=== PATIENT | male | born 1955 | race Caucasian/White ===

== ENCOUNTER 2016-11-30 23:56 | Emergency (ER) | payer SELFPAY ==
[2016-12-01] MEDS ORDERED: HYDROcodone/ACETAMIN 5-325 MG* 1 TAB PO PRN (02:19)
[2016-12-01 02:41] VITALS: BP 150/70
--- NOTE | 2016-12-01 07:52 | RAD ---
INDICATION: Right knee pain COMPARISON: August 04, 2013 TECHNIQUE: AP, lateral, and oblique views were obtained. FINDINGS: The bony structures, joint spaces, and soft tissues are normal for age. IMPRESSION: NEGATIVE EXAMINATION
--- NOTE | 2016-12-01 14:33 | ED ---
Lenny Aquino Rebecca, scribed for Savana Cline MD on 12/01/16 at 0050 . Lower Extremity - HPI Summary HPI Summary: Pt is a 61 y/o M who presents to ED c/o R knee pain s/p injury. 10 days ago () the pt twisted his right knee and he began experiencing pain after incident , but was hoping that sx would resolve themselves. Pain is still present and is currently mild, ranked 6/10. Treating with Ibuprofen, last took 400 mg at 1999 which did not alleviate sx. Sx aggravated by kneeling, alleviated by nothing. States that "it feels really week" and that it has not dislocated or slipped. 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 This is the first time being evaluated for this pain. No PMHx DVT or PE. - History of Current Complaint Chief Complaint: EDExtremityLower Stated Complaint: RT KNEE INJURY Time Seen by Provider: 12/01/16 00:24 Hx Obtained From: Patient Mechanism Of Injury: Twisted Onset of Pain: Days - 10 days, Prior to Arrival Onset/Duration: Still Present Severity Currently: Moderate Pain Intensity: 6 Pain Scale Used: 0-10 Numeric Location: Is Discrete @ - R knee Associated Signs And Symptoms: Positive: Negative Aggravating Factor(s): Other - Kneeling Alleviating Factor(s): Nothing Able to Bear Weight: Yes - Allergies/Home Medications Allergies/Adverse Reactions: Allergies Allergy/AdvReac Type Severity Reaction Status Date / Time Sulfa Antibiotics Allergy Unknown Verified 12/01/16 00:01 Reaction Details PMH/Surg Hx/FS Hx/Imm Hx Cardiovascular History: Reports: Hx Coronary Artery Disease - STENT X1, Hx Hypertension - WELL CONTROLLED ON MEDS Denies: Hx Deep Vein Thrombosis, Hx Pacemaker/ICD Respiratory History: Reports: Hx Sleep Apnea Denies: Hx Pulmonary Embolism Sensory History: Reports: Hx Contacts or Glasses - READING Denies: Hx Hearing Aid Opthamlomology History: Reports: Hx Contacts or Glasses - READING Psychiatric History: Denies: Hx Panic Disorder - Surgical History Surgery Procedure, Year, and Place: CARDIAC STENT PLACED 2006. MULTI-LINK VISION CARD IS UNLEDGABLE 1.5T ONLY Hx Anesthesia Reactions: No - Immunization History Date of Tetanus Vaccine: pt unsure. will call PCP tomorrow to verify is UTD Infectious Disease History: No Infectious Disease History: Denies: Traveled Outside the [place] in Last 30 Days - Family History Known Family History: Positive: Cardiac Disease, Diabetes - Social History Alcohol Use: Occasionally Alcohol Amount: 1-2/MONTH Substance Use Type: Reports: None Smoking Status (MU): Heavy Every Day Tobacco Smoker Type: Cigarettes Amount Used/How Often: PACK/DAY Length of Time of Smoking/Using Tobacco: 45 YRS Review of Systems Negative: Fever Positive: Arthralgia - R knee pain All Other Systems Reviewed And Are Negative: Yes Physical Exam Triage Information Reviewed: Yes Vital Signs On Initial Exam: Initial Vitals Temp Pulse Resp BP Pulse Ox 98.2 F 63 14 157/71 97 11/30/16 23:58 11/30/16 23:58 11/30/16 23:58 11/30/16 23:58 11/30/16 23:58 Vital Signs Reviewed: Yes Appearance: Positive: Well-Appearing, Well-Nourished, Pain Distress Skin: Positive: Warm, Skin Color Reflects Adequate Perfusion Head/Face: Positive: Normal Head/Face Inspection Eyes: Positive: Conjunctiva Clear ENT: Positive: Normal ENT inspection Neck: Positive: Supple Respiratory/Lung Sounds: Positive: Clear to Auscultation, Breath Sounds Present , Other - No respiratory distress Cardiovascular: Positive: RRR, Pulses are Symmetrical in both Upper and Lower Extremities, Other - Brisk capillary refill. Negative: Murmur Abdomen Description: Positive: Nontender, Soft Bowel Sounds: Positive: Present Musculoskeletal: Positive: Other - Tender all along the joint line of the R knee with flexion to 90 degrees. Slight crepitus. Able to lift the RLE. Neurological: Positive: Sensory/Motor Intact, Alert, Oriented to Person Place, Time, Facial Symmetry, Speech Normal Psychiatric: Positive: Normal - Mouthcard Coma Scale Coma Scale Total: 15 Diagnostics - Vital Signs Vital Signs Temp Pulse Resp BP Pulse Ox 11/30/16 23:58 98.2 F 63 14 157/71 97 - Laboratory Lab Statement: Any lab studies that have been ordered have been reviewed, and results considered in the medical decision making process. - Radiology Knee XR Xray Interpretation: No Acute Changes - Degenerative changes. No effusion, no fracture. Radiology Interpretation Completed By: ED Physician Re-Evaluation - Re-Evaluation First Eval Re-Evaluation Time: 02:00 Comment: Pt continues to be in pain. Second Eval Re-Evaluation Time: 02:21 Comment: Discussed XR results with the pt. Lower Extremity Course/Dx - Course Assessment/Plan: Pt is a 61 y/o M who presents to ED c/o R knee pain s/p injury. 10 days ago (11/21) the pt twisted his right knee and he began experiencing pain after incident, but was hoping that sx would resolve themselves. Pain is still present and is currently mild, ranked 6/10. Treating with Ibuprofen, last took 400 mg at 1999 which did not alleviate sx. Sx aggravated by kneeling, alleviated by nothing. States that "it feels really week " and that it has not dislocated or slipped. 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 This is the first time being evaluated for this pain. No PMHx DVT or PE. Knee XR, as read by ED physician, reveals no acute changes. In the ED course, pt received Monroe 5-325. Declines crutches. He will be D/C to home with Dx of knee sprain, Rx for Monroe 5/325 and a follow up with Dr. Bell and Dr. Gracia. He understands and agrees. Pt medications reviewed this visit. Elevated BP noted. Allergies noted. - Diagnoses Provider Diagnoses: Knee sprain, Elevated BP in poor control Discharge - Discharge Plan Condition: Stable Disposition: HOME Prescriptions: HYDROcodone/ACETAMIN 5-325 MG* [Monroe 5-325 TAB*] 1 tab PO Q4H PRN #12 tab MDD 4 PRN Reason: Pain Patient Education Materials: Knee Sprain (ED) Forms: *Work Release Referrals: Fortino Gracia MD [Medical Doctor] - 2 Days Non Staff,Doctor [Primary Care Provider] - Madelin Bell MD [Medical Doctor] - (Call the office this morning to set up a follow up appointment. ) The documentation as recorded by the Lenny funk Rebecca accurately reflects the service I personally performed and the decisions made by me, Savana Cline MD.
== END 2016-12-01 02:41 | disposition home or self-care (01) ==
LOC: ED 23:56
DX: S83.91XA Sprain of unspecified site of right knee, initial encounter (principal); R03.0 Elevated blood-pressure reading, without diagnosis of hypertension; M25.561 Pain in right knee; F17.210 Nicotine dependence, cigarettes, uncomplicated; X58.XXXA Exposure to other specified factors, initial encounter; Y93.9 Activity, unspecified; Y92.9 Unspecified place or not applicable
CPT/HCPCS: 99282

== ENCOUNTER 2017-05-22 05:42 | Day surgery (SDC) | payer OTHER ==
--- NOTE | 2017-04-23 19:51 | HP ---
HISTORY AND PHYSICAL: DATE OF ADMISSION/SURGERY: 05/10/17 DATE OF OFFICE VISIT: 04/23/17 SURGEON: Madelin Bell MD * (DICTATED BY CHARLES CAMARILLO) PROCEDURE: Right knee arthroscopy with partial medial meniscectomy, possible chondroplasty, possible synovectomy. CHIEF COMPLAINT: Right knee pain. HISTORY OF PRESENT ILLNESS: Mr. Butler is a 61-year-old male with continued complaints of right knee pain. An MRI confirms medial meniscus tear. He has elected to proceed with surgery. PAST MEDICAL HISTORY: Hypertension, COPD, high cholesterol, coronary artery disease, sleep apnea. PAST SURGICAL HISTORY: Left shoulder rotator cuff repair, left knee arthroscopy , heart stent placement. CURRENT MEDICATIONS: 1. Diclofenac 75 mg. 2. Gabapentin 300 mg q.h.s. 3. Amlodipine 10 mg daily. 4. Aspirin 81 mg daily. 5. Atorvastatin 40 mg daily. 6. Atenolol 100 mg daily. 7. Lisinopril 40 mg daily. 8. Zolpidem 10 mg q.h.s. ALLERGIES: To SULFA ANTIBIOTICS. FAMILY HISTORY: COPD, diabetes, coronary artery disease. 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 He smokes pack a day. Denies use of drugs or alcohol. REVIEW OF SYSTEMS: A complete 14-point review of systems was reviewed with the patient, positive for COPD. PHYSICAL EXAMINATION GENERAL: He is well developed, well nourished, in no acute distress. VITAL SIGNS: He stands 5 feet 11 inches tall, weighs 237 pounds, blood pressure 124/76, his heart rate is 76. HEENT: Normocephalic, atraumatic. NECK: Supple. No palpable lymph nodes. PULMONARY: Lungs are clear to auscultation bilaterally. CARDIO: Regular rate and rhythm. Strong S1, S2. ABDOMEN: Soft, nontender, nondistended. NEUROLOGICAL: He is alert and oriented x3. Cranial nerves II through XII are intact. MUSCULOSKELETAL: Right lower extremity, the skin is intact. There are no open wounds or abrasions. He has some tenderness along the medial joint line. Positive Debbie's. Positive Apley's. Negative Shawn's. 2+ dorsalis pedis pulses, intact sensation. His lower extremity muscle group strengths are intact at 5/5. ASSESSMENT AND PLAN: Mr. Butler is a 61-year-old gentleman with continued complaints of right knee pain and MRI confirms a medial meniscus tear. He has elected to proceed with surgery, which is scheduled for 05/10/[address] Bell discussed the risks and benefits of the surgery at today's visit and all of his questions were answered. He will follow with Dr. Bell 2 weeks after the surgery. CHARLES CAMARILLO [id number]/CPS #: [id number] MTDDasia
[2017-05-22] MEDS ORDERED: Sodium Citrate/Citric Acid* 15 ML UDC ONE (05:46)
[2017-05-22] MEDS ORDERED: ceFAZolin 2 GM PREMIX (*) 2 GM/50 ML BAG IVPB ONE (05:46)
[2017-05-22] MEDS ORDERED: Sodium Citrate/Citric Acid* 15 ML UDC PO ONE (06:00)
[2017-05-22] MEDS: Buffered Lidocaine 0.9% SYRIN* 5 ML/SYR SYRINGE INTRADERM ONE ×2 (06:14→06:15)
[2017-05-22] MEDS ORDERED: Bupivacaine 0.5% SDV PF* 10-30ML VIAL ONE (07:02)
[2017-05-22] MEDS ORDERED: methylPREDNISolone ACETATE 80* 80 MG/ML 1 ML VIAL ONE (07:02)
[2017-05-22] MEDS ORDERED: EPINEPHRINE 1 MG/ML 1 ML VIAL ONE (07:02)
[2017-05-22] MEDS ORDERED: Lidocaine 2% PF * 5 ML VIAL ONE (07:32)
[2017-05-22] MEDS ORDERED: fentaNYL* 50 MCG/ML 2 ML VIAL (100 MCG VIAL) ONE (07:32)
[2017-05-22] MEDS ORDERED: Propofol* 10 MG/ML 20 ML BTL IV PUSH ONE (07:32)
[2017-05-22] MEDS ORDERED: fentaNYL* 50 MCG/ML 2 ML VIAL (100 MCG VIAL) IV PRN (08:56)
[2017-05-22] MEDS ORDERED: Ondansetron INJ* 2 MG/ML VIAL IV PRN (08:56)
[2017-05-22] MEDS ORDERED: Naloxone* 0.4 MG/ML 1 ML VIAL IV PRN (08:56)
[2017-05-22] MEDS ORDERED: Ketorolac INJ* 30 MG/ML 1 ML VIAL IV PRN (08:56)
[2017-05-22] MEDS ORDERED: Ketorolac INJ* 30 MG/ML 1 ML VIAL ONE (09:14)
[2017-05-22 09:34] VITALS: BP 142/80
--- NOTE | 2017-05-23 13:02 | OP ---
DATE OF OPERATION: 05/22/17 - [facility] DATE OF : 57 ATTENDING SURGEON: Madelin Bell MD. COMPOUNDING ASSISTANT: CHARLES Herman. Mr. Lucio did help throughout the procedure with preparation of the leg, wound retraction, manipulation of the knee, and wound closure. ANESTHESIOLOGIST: Dr. Frances. ANESTHESIA: General. PRE-OP DIAGNOSIS: Right knee medial meniscal tear. POST-OP DIAGNOSES: Right knee medial meniscal tear, [id number] degenerative osteoarthritis in the medial joint compartment, moderate osteoarthritis in the patellofemoral compartment. OPERATIVE PROCEDURE: Right knee arthroscopy with partial medial meniscectomy and medial chondroplasty. ESTIMATED BLOOD LOSS: Less than 25 cc. COMPLICATIONS: None. SPECIMEN: None. BRIEF HISTORY/INDICATION: Mr. Butler is a 61-year-old gentleman, who injured his right knee while working. He had a twisting injury to the knee and subsequently had pain, swelling, and mechanical symptoms along the medial joint line. He failed conservative treatment with physical therapy, rest, ice, antiinflammatories, and intraarticular injection. An MRI confirmed a medial meniscal tear. Due to continued pain and failure of conservative treatment, the patient elected to undergo a right knee arthroscopy with partial medial meniscectomy, possible chondroplasty, possible synovectomy. Informed consent was obtained from the patient. He understood the risks of surgery included but were not limited to bleeding, infection, damage to nearby structures, continued pain, need for further surgery, stroke, heart attack, blood clot, and . He wished to proceed. INTRAOPERATIVE FINDINGS: Intraoperatively, the patient was noted to have grade 2 and 3 Outerbridge cartilage changes in the patellofemoral compartment, affecting the medial and lateral patellar facets. He was noted to have grade 3 and 4 Outerbridge cartilage changes in the medial compartment affecting the medial femoral condyle. He was noted to have a radial-type tear in the posterior horn of the medial meniscus in the white-red zone. DESCRIPTION OF PROCEDURE: Mr. Butler was identified in the preanesthesia unit. His right lower extremity was marked as the correct operative site. Informed consent was signed and placed in the chart. The patient was taken to the operating room and placed under general anesthesia. Right lower extremity was prepped and draped in the usual sterile fashion. Preop time-out was made to correctly identify the patient, side, and site. Appropriate perioperative antibiotics were given within 1 hour of incision. A 0.5-cm anterolateral portal incision was made with a 15-blade and carried down through the capsule. Trocar was introduced. As soon as the light and water sources were turned on, there was immediate visualization of the supra- patellar pouch. A tour of the knee joint was performed. Suprapatellar pouch had no obvious abnormality. Patellofemoral compartment had grade 2 and 3 Outerbridge cartilage changes affecting mainly the medial patellar facet, but also affecting the lateral patellar facet and femoral trochlear groove. The medial gutter had no significant plica or loose body. The medial compartment had a large cartilage flap with exposed subchondral bone. This was along the medial femoral condyle with grade 3/4 Outerbridge cartilage changes. Radial tear was visible in the posterior one-third of the medial meniscus. ACL and PCL appeared to be intact. The knee was placed in a figure-of-4 position. Lateral compartment showed no obvious meniscal tear. No significant degenerative changes. Lateral gutter showed no plica or loose bodies. Under direct visualization, a medial portal incision was made with a 15-blade. Probe was introduced and a second tour of the knee joint was performed. No additional findings were noted. The medial femoral condyle had a large cartilage flap with exposed subchondral bone. Radiofrequency ablation wand and shaver were used to smooth the edges of the cartilage flap. Next, a probe was used to evaluate the radial tear of the medial meniscus. This did reach the white-red zone. Straight biter and shaver were used to perform partial medial meniscectomy until a smooth border of meniscus was obtained in the white-red zone. Probe was used to ensure there was no further tearing or displaced fragments. The knee was copiously irrigated with sterile saline. All instruments were removed. An intraarticular injection of 80 mg Depo-Medrol and 6 cc of 0.25% Marcaine was placed in the knee joint. The patient's incisions were closed with interrupted 3-0 nylon suture. Incisions were covered with sterile Xeroform, 4x4s, and Webril. Sukhwinder wrap and cold pack were placed over this. The patient's anesthesia was reversed without difficulty. He was taken to the PACU in stable condition. Intended weightbearing will be weightbearing as tolerated. Intended DVT prophylaxis will be aspirin. [id number]/[facility] #: [id number] [facility]
== END 2017-05-22 09:55 | disposition home or self-care (01) ==
LOC: OR 05:42
PROVIDERS: ATTEND Orthopaedic Surgery Adult Reconstructive Orthopaedic Surgery
DX: S83.241A Other tear of medial meniscus, current injury, right knee, initial encounter (principal); X50.1XXA Overexertion from prolonged static or awkward postures, initial encounter; Y92.89 Other specified places as the place of occurrence of the external cause; Y99.0 Civilian activity done for income or pay; M17.11 Unilateral primary osteoarthritis, right knee; I10 Essential (primary) hypertension; J44.9 Chronic obstructive pulmonary disease, unspecified; E78.00 Pure hypercholesterolemia, unspecified; I25.10 Atherosclerotic heart disease of native coronary artery without angina pectoris; G47.33 Obstructive sleep apnea (adult) (pediatric); Z95.5 Presence of coronary angioplasty implant and graft
CPT/HCPCS: A9270-GY; J0690; J1040; J1885; J2704; J3010

== ENCOUNTER 2017-12-13 10:28 | Inpatient (IN) | payer OTHER ==
--- NOTE | 2017-12-05 19:05 | HP ---
HISTORY AND PHYSICAL: DATE OF ADMISSION/SURGERY: 12/13/17 DATE OF OFFICE VISIT: 12/05/17 SURGEON: Madelin Bell MD * (DICTATED BY CHARLES CAMARILLO) PROCEDURE: Right total knee arthroplasty. CHIEF COMPLAINT: Right knee pain. HISTORY OF PRESENT ILLNESS: Mr. Butler is a 62-year-old gentleman with end-stage osteoarthritis of his right knee. He has failed conservative treatment and elected to proceed with a right total knee arthroplasty. PAST MEDICAL HISTORY: Hypertension, COPD, coronary artery disease, and sleep apnea. PAST SURGICAL HISTORY: Stent placement, bilateral knee arthroscopies, and left shoulder surgery. CURRENT MEDICATIONS: 1. Meloxicam 15 mg daily. 2. Atenolol daily. 3. Zolpidem tartrate 40 mg daily. 4. Lisinopril 30 mg daily. 5. Amlodipine 10 mg daily. 6. Atorvastatin calcium 40 mg daily. 7. Aspirin 81 mg daily. ALLERGIES: To SULFA. FAMILY HISTORY: Diabetes, coronary artery disease, and stroke. SOCIAL HISTORY: He is a 62-year-old gentleman, lives with his son. He smokes approximately half a pack a day. Denies use of drugs or alcohol. REVIEW OF SYSTEMS: A complete 14-point review of systems was reviewed with the patient. It was positive for COPD and shortness of breath. He denies history of DVT, PE, hepatitis, HIV, or anesthesia problems. PHYSICAL EXAMINATION GENERAL: He is well developed, well nourished, in no acute distress. VITAL SIGNS: He stands 6 feet tall, weighs 238 pounds. His blood pressure 128/ 70 and his heart rate is 56. HEENT: Normocephalic, atraumatic. NECK: Supple. No palpable lymph nodes. PULMONARY: Lungs are clear to auscultation bilaterally. There is some inspiratory wheezing in the left lower lung base. CARDIO: Regular rate and rhythm. Strong S1, S2. ABDOMEN: Soft and nontender. NEUROLOGICAL: He is alert and oriented x3. MUSCULOSKELETAL: Right lower extremity, the skin is intact. There are no open wounds or abrasions. There is a [id number] joint effusion and some tenderness along the medial and lateral joint line. Range of motion is 5 to 120 degrees of flexion with patellofemoral crepitus, 2+ dorsalis pedis pulses, and intact sensation. His lower extremity muscle group strengths are intact at 5/5. ASSESSMENT AND PLAN: Mr. Butler is a 62-year-old gentleman with end-stage osteoarthritis of the right knee. He has failed conservative treatment and elected to proceed with a right total knee arthroplasty, which is scheduled for 12/13/[address] Bell discussed the risks and the benefits of the surgery at today's visit and all of his questions were answered. He will follow up with Dr. Bell 2 weeks after the surgery. CHARLES CAMARILLO [id number]/[facility] #: [id number] [facility]ITAL[facility]
[~2017-12-13 10:28] MED LIST: Acetaminophen TAB* 325 MG PO ONE; Buffered Lidocaine 0.9% SYRIN* 5 ML/SYR SYRINGE INTRADERM ONE; Gabapentin CAP(*) 300 MG PO ONE; Levalbuterol 0.63MG/3ML NEB* UNIT OF USE INH ONE; Tranexamic Acid 1,000 MG in NS 0.9% 50 ML* (outpatient use) IV SCH; celeCOXIB CAP* 200 MG PO ONE
[2017-12-13] MEDS ORDERED: celeCOXIB CAP* 100 MG ONE (10:49)
[2017-12-13] MEDS ORDERED: ceFAZolin 2 GM PREMIX in ORs 2 GM/50 ML BAG IVPB ONE (10:50)
[2017-12-13] MEDS ORDERED: Levalbuterol 0.63MG/3ML NEB* UNIT OF USE INH ONE (10:50)
[2017-12-13] MEDS ORDERED: Gabapentin CAP(*) 300 MG ONE (10:50)
[2017-12-13] MEDS ORDERED: Buffered Lidocaine 0.9% SYRIN* 5 ML/SYR SYRINGE ONE (10:50)
[2017-12-13] MEDS ORDERED: Acetaminophen TAB* 325 MG ONE (10:50)
[2017-12-13] MEDS ORDERED: Midazolam* 1 MG/ML 2 ML VIAL (2 MG) ONE (11:43)
[2017-12-13] MEDS ORDERED: fentaNYL* 50 MCG/ML 2 ML VIAL (100 MCG VIAL) ONE ×2 (11:43→16:12)
[2017-12-13] MEDS ORDERED: Bupivacaine 0.5% SDV PF* 30ML VIAL ONE (12:04)
[2017-12-13] MEDS ORDERED: Succinylcholine* 20 MG/ML 10 ML VIAL ONE (12:54)
[2017-12-13] MEDS ORDERED: Cisatracurium* 2 MG/ML MDV 5 ML ONE (12:54)
[2017-12-13] MEDS ORDERED: Famotidine IV* 10 MG/ML 2 ML (20 mg) ONE (12:54)
[2017-12-13] MEDS ORDERED: Dexamethasone IV* 4 MG/ML 1 ML (4 MG) ONE (12:54)
[2017-12-13] MEDS ORDERED: Propofol* 10 MG/ML 20 ML BTL IV PUSH ONE (12:54)
[2017-12-13] MEDS ORDERED: EPHEDrine (Pressors)* 50 MG/ML VIAL ONE (13:14)
[2017-12-13] MEDS ORDERED: Hetastarch 6% in NS* 500 ML IV ONE (13:17)
[2017-12-13] MEDS ORDERED: HYDROmorphone INJ1* 1 MG/ML SYRINGE ONE ×2 (14:17→16:12)
[2017-12-13] MEDS ORDERED: Acetaminophen TAB* 325 MG PO PRN (15:05)
[2017-12-13] MEDS ORDERED: PROCHLORPERAZINE INJ 5 MG/ML 2 ML VIAL IV PRN (15:05)
[2017-12-13] MEDS ORDERED: Levalbuterol 0.63MG/3ML NEB* UNIT OF USE INH PRN (15:05)
[2017-12-13] MEDS ORDERED: Ondansetron INJ* 2 MG/ML VIAL IV PRN ×2 (15:05→15:32)
[2017-12-13] MEDS ORDERED: Naloxone* 0.4 MG/ML 1 ML VIAL IV PRN (15:05)
[2017-12-13] MEDS ORDERED: HYDROcodone/ACETAMIN 5-325 MG* 1 TAB PO PRN ×2 (15:05)
[2017-12-13] MEDS ORDERED: DiMENhydriNATE IV* 50 MG/ML VIAL IV PUSH PRN (15:05)
[2017-12-13] MEDS ORDERED: diPHENhydraMINE IV* 50 MG/ML 1 ml VIAL (BENADRYL) IV PRN (15:05)
[2017-12-13] MEDS ORDERED: Levalbuterol HFA INHALER* 1 PUFF MDI ONE (15:17)
[2017-12-13] MEDS ORDERED: Cyclobenzaprine TAB* 10 MG PO PRN (15:32)
[2017-12-13] MEDS ORDERED: traMADol TAB* 50 MG PO PRN (15:32)
[2017-12-13] MEDS ORDERED: Ondansetron TAB* 4 MG PO PRN (15:32)
[2017-12-13] MEDS ORDERED: Bisacodyl SUPP* 10 MG SUPP PR PRN (15:32)
[2017-12-13] MEDS ORDERED: Polyethylene Glycol 3350* 17 GM PACKET PO PRN (15:32)
[2017-12-13] MEDS ORDERED: Magnesium Hydroxide LIQ* 30 ML UDC PO PRN (15:32)
[2017-12-13] MEDS ORDERED: Morphine INJ* 4 MG/ML 1 ML SYRINGE (NEW SYRINGE VERSION) IV PRN (15:32)
[2017-12-13] MEDS ORDERED: Albuterol HFA INHALER* 8 gm MDI INH PRN (15:39)
[2017-12-13] MEDS: fentaNYL* 50 MCG/ML 2 ML VIAL (100 MCG VIAL) IV PRN ×3 (16:14→16:56)
[2017-12-13] MEDS: HYDROmorphone INJ1* 1 MG/ML SYRINGE IV PRN ×3 (16:15→16:57)
[2017-12-13] MEDS ORDERED: Warfarin TAB(*) 6 MG PO ONE (17:00)
--- NOTE | 2017-12-13 17:29 | RAD ---
Indication: Right knee replacement 2 views of the right knee demonstrates bipolar right knee replacement in satisfactory position. No loosening is noted. IMPRESSION: Bipolar right knee arthroplasty in satisfactory position..
[2017-12-13] MEDS: Acetaminophen TAB* 325 MG PO SCH (19:01)
[2017-12-13] MEDS: ceFAZolin 1 GM in Dextrose (*) 1 GM/50 ML BAG IVPB SCH (21:03)
[2017-12-13] MEDS: Nicotine Patch Removal NOTE FOLLOW UP SCH (21:06)
[2017-12-13] MEDS: Docusate CAP* 100 MG PO SCH (21:09)
[2017-12-13] MEDS: Magnesium Hydroxide LIQ* 30 ML UDC PO SCH (21:10)
[2017-12-13] MEDS: oxyCODONE TAB* 5 MG TAB PO PRN (21:17)
[2017-12-13] MEDS: diPHENhydraMINE PO* 25 MG PO PRN (21:17)
--- NOTE | 2017-12-13 22:23 | CONS ---
CC: Dr. Marks; Dr. Bell * CONSULTATION REPORT: DATE OF CONSULTATION: 12/13/17 PRIMARY CARE PROVIDER: Dr. Marks. ORTHOPEDIC SURGEON: Dr. Bell. CHIEF COMPLAINT: Status post right knee arthroplasty. HISTORY OF PRESENT ILLNESS: Mr. Butler is a 62-year-old male who has a history of hypertension, COPD, coronary artery disease, and sleep apnea who is admitted to [facility] post elective right total knee arthroplasty. The patient was diagnosed with end- stage osteoarthritis of his right knee and had failed conservative management and elected to proceed with an elective total knee arthroplasty. The patient reportedly did well in surgery up until the end of surgery when he developed an episode of bronchospasm. This was treated without any complication in the OR. At this point, the patient states that he is feeling okay. He states that he is still trying to wake up. He had mentioned that he had increased pressure in his right knee to the nurse and he is going to be getting a dose of pain medication in the recovery area. The patient denies any shortness of breath at this point. Of note, the patient did have a respiratory illness in the week leading up to his surgery. He had been on Z-Nathan as well as prednisone taper. PAST MEDICAL HISTORY: 1. Hypertension. 2. COPD. 3. Coronary artery disease. 4. Obstructive sleep apnea. PAST SURGICAL HISTORY: 1. Bilateral knee arthroscopies. 2. Left shoulder surgery. MEDICATIONS: 1. Nicotine patch topically daily as needed for craving. 2. Diclofenac 75 mg p.o. t.i.d. p.r.n. pain. 3. Lipitor 40 mg p.o. daily. 4. Atenolol 100 mg p.o. daily. 5. Aspirin 81 mg p.o. daily. 6. Albuterol 2 puffs inhaled q.4 hours p.r.n. shortness of breath. 7. Amlodipine 10 mg p.o. daily. 8. Ambien 10 mg p.o. q.h.s. p.r.n. insomnia. 9. Lisinopril 40 mg p.o. daily. ALLERGIES: SULFA. FAMILY HISTORY: Positive for diabetes, coronary artery disease, and stroke. SOCIAL HISTORY: The patient lives with his son. He smokes approximately half a pack of cigarettes per day. He does not drink alcohol. REVIEW OF SYSTEMS: A complete 11-system review of systems is attempted. Pertinent positives and negatives are as per HPI and otherwise negative. PHYSICAL EXAMINATION: Blood pressure 153/83, pulse 63, respirations 14, temp 97.3, O2 sat 95% on 2 L. General: The patient is a middle aged, obese male, lying flat in the stretcher, awake, but drowsy and somewhat foggy from recent anesthesia. HEENT: Pupils are equal and round. Extraocular muscles are intact. Oropharynx is clear. Oral mucosa is dry. There is no submandibular, cervical, or supraclavicular adenopathy, though the patient's neck is thick making the exam difficult. Cardiac: Normal S1, S2. Regular rate and rhythm. I do not appreciate any murmurs. There is no lower extremity edema. Pulmonary : Lungs are clear to auscultation bilaterally. Abdomen: Bowel sounds are present. Abdomen is soft, nontender, nondistended. Musculoskeletal: The patient's right knee is in a cryo unit. Range of motion is not tested at this time. Skin is warm and dry. There are no rashes. Neuro: Cranial nerves II through XII are grossly intact. Sensation is intact to light touch throughout. Strength is not tested. Psych: The patient is drowsy, but able to answer questions appropriately. ASSESSMENT AND PLAN: Mr. Butler is a 62-year-old obese male with a history of hypertension, chronic obstructive pulmonary disease, obstructive sleep apnea, coronary artery disease, and ongoing tobacco abuse who is admitted to the hospital post elective right total knee arthroplasty. 1. Right total knee arthroplasty. Management per Orthopedics. 2. Hypertension. At this point, the patient's blood pressure remains moderately elevated. I will continue all of his home medications including atenolol 100 mg daily, lisinopril 40 mg daily, and amlodipine 10 mg daily. His blood pressure will need to be monitored closely. 3. Chronic obstructive pulmonary disease. At this point, there are no signs of exacerbation. The patient did recently get treated for an upper respiratory tract infection with a Z-Nathan and prednisone. At this point, there is no wheezing on exam. He did have an episode of bronchospasm in the OR. We will monitor him closely overnight. The patient does utilize CPAP with sleep. He has brought his own CPAP machine and this will be ordered for him. 4. Coronary artery disease. The patient has no complaints of chest pain at this time. He will continue on his Lipitor and atenolol. 5. Tobacco abuse. The patient has been smoking half a pack per day. Nicotine patch 14 mg will be ordered. 6. DVT prophylaxis. Lovenox is to start tomorrow at noon with a bridged Coumadin. 7. Code status is full. TIME SPENT: 40 minutes were spent on this consultation. [id number]/[facility] #: [id number] CAITLIN
[2017-12-14] MEDS: oxyCODONE/Acetamin 5/325 MG* TAB PO PRN ×6 (00:27→21:12)
[2017-12-14] MEDS: diPHENhydraMINE PO* 25 MG PO PRN (04:17)
[2017-12-14 05:37] LABS: Hematocrit 44 % (42-52); Hemoglobin 14.8 g/dl (14.0-18.0); Mean Platelet Volume 10.3 um3 (7.4-10.4); Platelet Count 141 10^3/ul (150-450)
[2017-12-14] MEDS: ceFAZolin 1 GM in Dextrose (*) 1 GM/50 ML BAG IVPB SCH ×2 (05:44→12:49)
[2017-12-14 05:45] LABS: INR 1.15 (0.77-1.02)
[2017-12-14 06:00] LABS: EGFR Non-African American 85.8 (>60)
[2017-12-14] MEDS: Acetaminophen TAB* 325 MG PO SCH ×3 (06:23→21:09)
[2017-12-14] MEDS: Atenolol TAB* 50 MG PO SCH (08:09)
[2017-12-14] MEDS: Docusate CAP* 100 MG PO SCH ×2 (08:09→21:11)
[2017-12-14] MEDS: amLODIPine TAB* 5 MG PO SCH (08:10)
[2017-12-14] MEDS: Magnesium Hydroxide LIQ* 30 ML UDC PO SCH ×2 (08:10→21:10)
[2017-12-14] MEDS: Lisinopril TAB* 10 MG PO SCH (08:10)
[2017-12-14] MEDS: Atorvastatin* 40 MG TAB PO SCH (08:10)
[2017-12-14] MEDS: Nicotine PATCH 14 MG/24 HR* PATCH TRANSDERM SCH (08:14)
[2017-12-14] MEDS ORDERED: ATENOLOL PO SCH (09:00)
--- NOTE | 2017-12-14 11:08 | PN ---
Progress Note - Progress Note Date of Service: 12/14/17 SOAP: Subjective: []Patient seen OOB standing in BR this am, pain well managed. Denies N/V or dizziness. Pain well managed. Plans for discharge home tomorrow. Objective: []Right knee BETH C/D/I calf NT and soft +DF/PF right ankle sensation intact distally Vital Signs Temp 98.2 F 12/14/17 08:17 Pulse 65 12/14/17 08:17 Resp 18 12/14/17 08:17 BP 180/77 12/14/17 08:17 Pulse Ox 97 12/14/17 08:17 Intake & Output 12/13/17 12/14/17 12/14/17 18:59 06:59 18:59 Intake Total 1650 2416 Output Total 300 3450 400 Balance 1350 -1034 -400 Weight 239 lb Intake: IV Fluids 1650 976 1GM TRANEXAMIC ACID 50 ABX - CEFAZOLIN 50 LR 926 NS 100ML, Cefazolin 2G 100 lr 1500 Oral 1440 Output: Urine 400 Grimes 150 3450 Estimated Blood Loss 150 Laboratory Results - last 24 hr 12/14/17 12/14/17 12/14/17 05:20 05:20 05:20 Hgb 14.8 Hct 44 Plt Count 141 L MPV 10.3 INR (Anticoag Therapy) 1.15 H Sodium 133 L Potassium 4.1 Chloride 101 Carbon Dioxide 26 Anion Gap 6 BUN 17 Creatinine 0.90 Est GFR ( Amer) 103.8 Est GFR (Non-Af Amer) 85.8 BUN/Creatinine Ratio 18.9 Glucose 196 H Calcium 8.5 L Assessment: []s/p RTK arthroplasty POD #1 Plan: []Pt/OT WBAT RLE Coumadin with Lovenox bridge, 8 mg today Anticipate discharge home 12/15 Follow up as scheduled with Dr. Bell.
[2017-12-14] MEDS: Enoxaparin(*) 40 MG/0.4 ML SYR SUBCUT SCH (12:14)
--- NOTE | 2017-12-14 12:28 | OP ---
OPERATIVE REPORT: DATE OF OPERATION: 12/13/17 DATE OF : 57 SURGEON: Madelin Bell MD OUTSOLE CEMENTER: CHARLES Herman Mr. Lucio did help throughout the procedure with preparation of the leg, wound retraction, manipulat ion of the knee and wound closure. ANESTHESIOLOGIST: Dr. Leo. ANESTHESIA: General. PRE-OPERATIVE DIAGNOSIS: Severe end-stage degenerative osteoarthritis of the right knee joint. POST-OPERATIVE DIAGNOSIS: Severe end-stage degenerative osteoarthritis of the right knee joint. OPERATIVE PROCEDURE: Right total knee arthroplasty. TOURNIQUET TIME: 61 minutes. COMPLICATIONS: None. ESTIMATED BLOOD LOSS: 200 cc. SPECIMEN: Bone and cartilage from the right knee joint sent to pathology. HARDWARE USED: This is cemented total knee arthroplasty hardware from [employer]. Two package s of Simplex bone cement were used. For the femur, a right size 6 posterior stabilized [employer] m femoral component. For the tibia, a right size 6 Emmanuelle II tibial base plate. For the insert, an 9-mm posterior stabilized articular insert size 5/6 and for the patella, a 32-mm, 3-peg all-poly pat symone with 7.5 thickness. BRIEF HISTORY/INDICATIONS: Mr. Butler is a 62-year-old gentleman with chronic history of right knee pa in. He initially injured his right knee at work. He went on to have meniscal tear treated with arth roscopy. He was found to have significant posttraumatic osteoarthritis and continued to have chronic pain. He failed conservative treatment with antiinflammatories, pain medication, intraarticular inj ections, and physical therapy. At the time of arthroscopy and on MRI, the patient was noted to have advanced arthritis in the medial and patellofemoral compartments. He elected to undergo right total knee arthroplasty due to continued pain and decreased quality of life. Informed consent was obtained from the patient. He understood the risks of surgery included, but were not limited to bleeding, in fection, damage to nearby structures, continued pain, need for further surgery, intraoperative fractu re, nerve palsy, hardware failure or loosening, knee stiffness, loss of motion, stroke, heart attack, blood clot, and . He wished to proceed. INTRAOPERATIVE FINDINGS: Intraoperatively, the patient was noted to have severe loss of cartilage in the medial and patellofemoral compartments. He had tricompartmental extensive osteophyte formation as well. DESCRIPTION OF PROCEDURE: Mr. Butler was identified in the preanesthesia unit. His right lower extrem ity was marked as the correct operative side. Informed consent was signed and placed in the chart. The patient was taken to the operating room and placed under general anesthesia. A Grimes catheter wa s placed. Tourniquet was placed on the right thigh. Right lower extremity was prepped and draped in the usual sterile fashion. Preop time-out was made to correctly identify the patient, side and site . Appropriate perioperative antibiotics were given within 1 hour of incision. The tourniquet was inflated and total tourniquet time for this procedure was 61 minutes. A midline i ncision was made and carried down to the extensor mechanism. A new 10-blade was used to make a standa rd medial parapatellar arthrotomy. The patella was subluxed laterally. Electrocautery was used to s ubperiosteally elevate the soft tissue off the superomedial tibia to the mid sagittal plane. The kne e was flexed up. The anterior horn of the lateral meniscus and ACL were sharply released. A drill w as used to enter the distal femur. Intramedullary distal femoral cutting guide was pinned on the dis jena femur. Oscillating saw was used to make the distal femoral cut. Next, the external rotation maverick de was pinned on the distal femur. Distal femur was sized to a size 6. Size 6 multi-cutting jig was pinned on the distal femur. Oscillating saw was used to make the 4 appropriate chamfer cuts. The PCL was completely released. Tibia was subluxed anteriorly. Extramedullary tibial cutting guide was pinned on the proximal tibia. Oscillating saw was used to make the proximal tibial cut perpendi cular to the mechanical axis of the tibia. The bone was carefully removed. The knee was brought out into full extension. The spacer block had good fit with medial and lateral ligamentous balancing. F lexion and extension gaps were well balanced. The knee was flexed up. Lamina all round logger was placed charity th medially and laterally. Any remaining meniscus was carefully removed using electrocautery. Curve d osteotome was used to remove any posterior osteophytes. A tibial tray and drop remington were placed and once again confirmed a satisfactory tibial cut. A size 6 right femoral trial was impacted onto the distal femur and had good fit. The box for the pos terior stabilized implant was prepared using a reamer and box- cut osteotome. A size 6 tibial tray t rial with a 9-mm insert trial was placed and the knee was taken through a range of motion. The knee had full extension to 190 degrees of flexion with satisfactory patellofemoral tracking. The patella was everted. A 7 mm of bone and cartilage were carefully removed using an oscillating sa w. The patella was sized to a size 32. Three peg holes were drilled through the size 32 guide. A 3 2 trial patella with 7.5 thickness was placed and the knee was taken through a range of motion. Ther e was satisfactory patellofemoral tracking. All trials were carefully removed. The tibia was subluxed anteriorly and sized to a size 6. Proxima l tibia was prepared using a size 6 keel punch. All bony cut surfaces were copiously irrigated with sterile saline and dried. Final implants were cemented into place starting with the tibia followed b y the femur and last the patella. A 9-mm insert trial was placed and the knee was brought out into f ull extension. The tourniquet was turned down at 61 minutes. The knee was copiously irrigated with sterile saline. Electrocautery was used to obtain meticulous hemostasis. Once the cement had fully cured, the insert trial was removed. Any excess cement was removed from around the capsule and hardw are. Final insert chosen was a 9-mm posterior stabilized articular insert size 5/6. This was locked into position on the tibial tray. Stability of the insert was checked and rechecked and noted to be stable. The knee was once again copiously irrigated with sterile saline. The extensor mechanism was closed u sing interrupted #1 Vicryl. The rest of the incision was closed in a layered fashion using 0 and 2-0 Vicryl. Skin was closed using running 3-0 nylon suture. Sterile Xeroform, 4x4's, and Webril were u sed to cover the incision. Sukhwinder wrap and cold pack were placed over this. The patient's anesthesia w as reversed without difficulty. He was taken to the PACU in stable condition. Intended weightbearing will be weightbearing as tolerated. Intended DVT prophylaxis will be Coumadin with a Lovenox bridge . [id number]/[facility] #: [id number]
[2017-12-14] MEDS ORDERED: Albuterol/Ipratropium NEB.SOL* Albuterol 2.5 MG/Ipratropium 0.5 MG 3 ML INH PRN (12:44)
--- NOTE | 2017-12-14 12:50 | PN ---
Subjective Date of Service: 12/14/17 Interval History: Pt states his breathing was better after resp tx. Pain control good. No new c/ o. Objective Active Medications: Acetaminophen (Tylenol Tab*) 975 mg PO Q8HR [facility] Last Admin: 12/14/17 06:23 Dose: Not Given Albuterol (Ventolin Hfa Inhaler*) 2 puff INH Q4H PRN PRN Reason: Wheezing/SOB Albuterol/Ipratropium (Duoneb (Albuterol 2.5 Mg/Ipratropium 0.5 Mg)) 1 neb INH Q4H PRN PRN Reason: SOB/WHEEZING Amlodipine Besylate (Norvasc Tab*) 10 mg PO QAM [facility] Last Admin: 12/14/17 08:10 Dose: 10 mg Atenolol (Tenormin Tab*) 100 mg PO QAM [facility] Last Admin: 12/14/17 08:09 Dose: 100 mg Atorvastatin Calcium (Lipitor*) 40 mg PO QAM [facility] Last Admin: 12/14/17 08:10 Dose: 40 mg Bisacodyl (Dulcolax Supp*) 10 mg GA DAILY PRN PRN Reason: constipation Cyclobenzaprine HCl (Flexeril Tab*) 10 mg PO TID PRN PRN Reason: SPASMS Diphenhydramine HCl (Benadryl Po*) 25 mg PO Q6H PRN PRN Reason: itching Last Admin: 12/14/17 04:17 Dose: 25 mg Docusate Sodium (Colace Cap*) 100 mg PO BID [facility] Last Admin: 12/14/17 08:09 Dose: 100 mg Enoxaparin Sodium (Lovenox(*)) 40 mg SUBCUT Q24H [facility] Last Admin: 12/14/17 12:14 Dose: 40 mg Cefazolin Sodium/Dextrose (Kefzol 1 Gm In Dextrose Duplex (*)) 1 gm in 50 mls @ 200 mls/hr IVPB Q8H [facility] Stop: 12/14/17 13:14 Last Admin: 12/14/17 05:44 Dose: 200 mls/hr Lactated Ringer's (Lactated Ringers 1000 Ml Bag*) 1,000 mls @ 100 mls/hr IV PER RATE [facility] Last Admin: 12/14/17 04:17 Dose: 100 mls/hr Lactulose (Lactulose*) 30 ml PO Q6H PRN PRN Reason: constipation Lisinopril (Prinivil Tab*) 40 mg PO QAM [facility] Last Admin: 12/14/17 08:10 Dose: 40 mg Magnesium Hydroxide (Milk Of Magnesia Liq*) 30 ml PO BID [facility] Last Admin: 12/14/17 08:10 Dose: 30 ml Magnesium Hydroxide (Milk Of Magnesia Liq*) 30 ml PO Q6H PRN PRN Reason: constipation Morphine Sulfate (Morphine Inj (Syringe)*) 2 mg IV Q2H PRN PRN Reason: PAIN - SEVERE Nicotine (Nicotine Patch 14 Mg/24 Hr*) 1 patch TRANSDERM DAILY [facility] Last Admin: 12/14/17 08:14 Dose: 1 patch Ondansetron HCl (Zofran Inj*) 4 mg IV Q6H PRN PRN Reason: nausea Ondansetron HCl (Zofran Tab*) 4 mg PO Q6H PRN PRN Reason: NAUSEA Oxycodone HCl (Roxycodone Tab*) 10 mg PO Q4H PRN PRN Reason: SEVERE PAIN Last Admin: 12/13/17 21:17 Dose: 10 mg Oxycodone/Acetaminophen (Percocet 5/325 Tab*) 1 tab PO Q4H PRN PRN Reason: PAIN Oxycodone/Acetaminophen (Percocet 5/325 Tab*) 2 tab PO Q4H PRN PRN Reason: PAIN Last Admin: 12/14/17 12:13 Dose: 2 tab Pharmacy Profile Note (Nicotine Patch Removal Note*) 1 note FOLLOW UP 2100 [facility] Last Admin: 12/13/17 21:06 Dose: Not Given Polyethylene Glycol/Electrolytes (Miralax*) 17 gm PO DAILY PRN PRN Reason: Constipation Tramadol HCl (Ultram*) 50 mg PO Q6H PRN PRN Reason: PAIN Vital Signs - 8 hr 12/14/17 12/14/17 12/14/17 06:24 08:10 08:17 Temperature 98.2 F Pulse Rate 65 Respiratory 16 16 18 Rate Blood Pressure 180/77 (mmHg) O2 Sat by Pulse 97 Oximetry 12/14/17 12:13 Temperature Pulse Rate Respiratory 16 Rate Blood Pressure (mmHg) O2 Sat by Pulse Oximetry Oxygen Devices in Use Now: None, CPAP Appearance: Alert, in a chair with cooling device on R knee. In good spirits. Looks comfortable. Extremities: No Edema, No Clubbing, Cyanosis, - - Cooling device on R knee. Skin: No Rash or Ulcers, No Nodules or Sclerosis Neurological: Alert and Oriented x 3, NL Sensation Result Diagrams: 12/14/17 05:20 12/14/17 05:20 Assess/Plan/Problems-Billing Assessment: - Patient Problems (1) COPD (chronic obstructive pulmonary disease) Current Visit: Yes Status: Acute Code(s): J44.9 - CHRONIC OBSTRUCTIVE PULMONARY DISEASE, UNSPECIFIED SNOMED Code(s): 56361600 Comment: Recetn infection, surgery. Seems to be recovering well. Continue PRN bronchodilator. (2) HTN (hypertension) Current Visit: Yes Status: Acute Code(s): I10 - ESSENTIAL (PRIMARY) HYPERTENSION SNOMED Code(s): 19378888 Comment: Continue amlodipine, atenolol, lisinopril at hooe doses. (3) Tobacco abuse Current Visit: Yes Status: Acute Code(s): Z72.0 - TOBACCO USE SNOMED Code( s): 907685748 Comment: Pt advised to enoch smoking and avoid second ahnad smoke.
[2017-12-14] MEDS ORDERED: Saline NASAL SPRAY 0.65%* BTL BOTH NARES PRN (15:30)
[2017-12-14] MEDS ORDERED: Warfarin TAB(*) 4 MG PO ONE (17:03)
[2017-12-14] MEDS: Nicotine Patch Removal NOTE FOLLOW UP SCH (21:12)
[2017-12-15] MEDS: oxyCODONE/Acetamin 5/325 MG* TAB PO PRN (03:46)
[2017-12-15] MEDS: Lisinopril TAB* 10 MG PO SCH (03:57)
[2017-12-15] MEDS: Acetaminophen TAB* 325 MG PO SCH (04:08)
[2017-12-15 06:12] LABS: ABS Basophils 0.1 10^3/ul (0-0.2); ABS Eosinophils 0.1 10^3/ul (0-0.6); ABS Lymphocytes 2.7 10^3/ul (1.0-4.8); ABS Monocytes 1.1 10^3/ul (0-0.8); ABS Neutrophils 9.9 10^3/ul (1.5-7.7); ABS Nucleated RBC 0 10^3/ul; Eosinophil % 0.5 % (0-6); Hematocrit 40 % (42-52); Hemoglobin 13.8 g/dl (14.0-18.0); Lymphocyte % 19.4 % (25-47); Mean Corpuscular HGB Conc 35 g/dl (31-36); Mean Corpuscular Hemoglobin 33 pg (27-31); Mean Corpuscular Volume 95 fL (80-94); Mean Platelet Volume 10.7 um3 (7.4-10.4); Nucleated Red Blood Cells % 0.1; Platelet Count 128 10^3/ul (150-450); Red Cell Distribution Width 14 % (10.5-15); White Blood Count 13.9 10^3/ul (3.5-10.8)
[2017-12-15 06:22] LABS: INR 1.29 (0.77-1.02)
[2017-12-15] MEDS: Magnesium Hydroxide LIQ* 30 ML UDC PO SCH (07:16)
--- NOTE | 2017-12-15 07:20 | PN ---
Progress Note - Progress Note Date of Service: 12/15/17 SOAP: Subjective: []resting comfortably. pain well controlled Objective: Vital Signs Temp Pulse Resp BP Pulse Ox 98.2 F 58 16 184/90 97 12/15/17 03:44 12/15/17 03:44 12/15/17 03:46 12/15/17 03:49 12/15/17 03:44 Laboratory Last Values WBC 13.9 10^3/ul (3.5-10.8) H 12/15/17 05:40 RBC 4.20 10^6/ul (4.00-5.40) 12/15/17 05:40 Hgb 13.8 g/dl (14.0-18.0) L 12/15/17 05:40 Hct 40 % (42-52) L 12/15/17 05:40 MCV 95 fL (80-94) H 12/15/17 05:40 MCH 33 pg (27-31) H 12/15/17 05:40 MCHC 35 g/dl (31-36) 12/15/17 05:40 RDW 14 % (10.5-15) 12/15/17 05:40 Plt Count 128 10^3/ul (150-450) L 12/15/17 05:40 MPV 10.7 um3 (7.4-10.4) H 12/15/17 05:40 Neut % (Auto) 71.6 % (38-83) 12/15/17 05:40 Lymph % (Auto) 19.4 % (25-47) L 12/15/17 05:40 Crockett % (Auto) 7.9 % (0-7) H 12/15/17 05:40 Eos % (Auto) 0.5 % (0-6) 12/15/17 05:40 Baso % (Auto) 0.6 % (0-2) 12/15/17 05:40 Absolute Neuts (auto) 9.9 10^3/ul (1.5-7.7) H 12/15/17 05:40 Absolute Lymphs (auto) 2.7 10^3/ul (1.0-4.8) 12/15/17 05:40 Absolute Monos (auto) 1.1 10^3/ul (0-0.8) H 12/15/17 05:40 Absolute Eos (auto) 0.1 10^3/ul (0-0.6) 12/15/17 05:40 Absolute Basos (auto) 0.1 10^3/ul (0-0.2) 12/15/17 05:40 Absolute Nucleated RBC 0 10^3/ul 12/15/17 05:40 Nucleated RBC % 0.1 12/15/17 05:40 INR (Anticoag Therapy) 1.29 (0.77-1.02) H 12/15/17 05:40 Sodium 133 mmol/L (135-145) L 12/14/17 05:20 Potassium 4.1 mmol/L (3.5-5.0) 12/14/17 05:20 Chloride 101 mmol/L (101-111) 12/14/17 05:20 Carbon Dioxide 26 mmol/L (22-32) 12/14/17 05:20 Anion Gap 6 mmol/L (2-11) 12/14/17 05:20 BUN 17 mg/dL (6-24) 12/15/17 05:40 Creatinine 0.90 mg/dL (0.67-1.17) 12/14/17 05:20 Est GFR ( Amer) 103.8 (>60) 12/14/17 05:20 Est GFR (Non-Af Amer) 85.8 (>60) 12/14/17 05:20 BUN/Creatinine Ratio 18.9 (8-20) 12/14/17 05:20 Glucose 196 mg/dL (70-100) H 12/14/17 05:20 Calcium 8.5 mg/dL (8.6-10.3) L 12/14/17 05:20 incision: c/d; dressing ahnged PE: NVI Assessment: s/p right TKA Plan: 1) PT/OT- WBAT 2) coumadin/lovenox for DVT prophylaxis 3) home today; follow-up with Ray in 2 weeks
[2017-12-15] MEDS: Atenolol TAB* 50 MG PO SCH (07:52)
[2017-12-15] MEDS: oxyCODONE TAB* 5 MG TAB PO PRN (07:52)
[2017-12-15] MEDS: Atorvastatin* 40 MG TAB PO SCH (07:52)
[2017-12-15] MEDS: Docusate CAP* 100 MG PO SCH (07:52)
[2017-12-15] MEDS: amLODIPine TAB* 5 MG PO SCH (07:52)
[2017-12-15] MEDS: Nicotine PATCH 14 MG/24 HR* PATCH TRANSDERM SCH (07:56)
[2017-12-15] MEDS: Enoxaparin(*) 40 MG/0.4 ML SYR SUBCUT SCH (11:47)
[2017-12-15 12:10] VITALS: BP 181/100
--- NOTE | 2017-12-15 12:26 | DS ---
DISCHARGE SUMMARY: DATE OF ADMISSION: 12/13/17 DATE OF DISCHARGE: 12/15/17 SURGEON: Madelin Bell MD PROCEDURE: Right total knee arthroplasty. PRINCIPAL DIAGNOSIS: End-stage osteoarthritis of the right knee. DISCHARGE DIAGNOSIS: End-stage osteoarthritis of the right knee. HISTORY OF PRESENT ILLNESS: Mr. Butler is a 62-year-old gentleman with end-stage osteoarthritis of the right knee. He failed conservative treatment and elected to proceed with a right total knee arthrop lasty, which was scheduled on 12/13/17. HOSPITAL COURSE: Mr. Butler was admitted electively to the hospital on 12/13/17 and underwent a right total knee arthroplasty. He tolerated the procedure well. Postoperatively, he was placed on Coumadin and Lovenox for DVT prophylaxis. On postoperative day 1, his H and H was 14 and 44; on postop day 2 , 13 and 40. His INR went from 1.15 to 1.29. At the time of discharge on 12/15/17, he was afebrile and his vital signs were stable. DISCHARGE MEDICATIONS: 1. Coumadin 2 mg tabs, take nightly at 5 p.m. 2. Percocet 5/325 mg 1 to 2 tabs every 4 to 6 hours as needed for pain. 3. Colace 100 mg 2 to 3 daily for constipation. 4. Flexeril 10 mg tabs 2 to 3 daily for muscle spasms. 5. Ventolin inhaler. 6. Albuterol/ipratropium. 7. Norvasc 10 mg daily. 8. Atenolol 100 mg daily. 9. Lipitor 40 mg daily. 10. Lisinopril 40 mg daily. PHYSICAL EXAM UPON DISCHARGE: He was afebrile. His vital signs were stable. His wound was clean an d dry. He has a 2+ dorsalis pedis pulse. Intact sensation in his lower extremities. Muscle group s trengths are intact at 5/5. DISCHARGE DISPOSITION: He was discharged to home in stable condition. DISCHARGE INSTRUCTIONS: He was discharged home. He was given Percocet to take for pain, Coumadin fo r DVT prophylaxis. At this time, he can take a shower, let soap and water run over the incision and pat the area dry. No pools, baths, or hot tubs. He will follow up with Dr. Bell in 2 weeks. CHARLES CAMARILLO [id number]/[facility] #: [id number]
[2017-12-16] MEDS ORDERED: Lisinopril TAB* 10 MG PO SCH (09:00)
== END 2017-12-15 13:30 | disposition home health service (06) | DRG 302 ==
LOC: AA 10:28 → SSU 17:29
PROVIDERS: ADMIT Orthopaedic Surgery Adult Reconstructive Orthopaedic Surgery; ATTEND Internal Medicine
PROC: 0SRC069 Replacement of Right Knee Joint with Oxidized Zirconium on Polyethylene Synthetic Substitute, Cemented, Open Approach (ICD-10-PCS; principal; 2017-12-13 13:00)
DX: M17.31 Unilateral post-traumatic osteoarthritis, right knee (principal); I10 Essential (primary) hypertension; J44.9 Chronic obstructive pulmonary disease, unspecified; I25.10 Atherosclerotic heart disease of native coronary artery without angina pectoris; E66.9 Obesity, unspecified; G89.29 Other chronic pain; M25.761 Osteophyte, right knee; F34.1 Dysthymic disorder; F17.210 Nicotine dependence, cigarettes, uncomplicated; M25.461 Effusion, right knee; E78.5 Hyperlipidemia, unspecified; G47.33 Obstructive sleep apnea (adult) (pediatric); Z68.32 Body mass index [BMI] 32.0-32.9, adult; Z95.5 Presence of coronary angioplasty implant and graft; Z88.2 Allergy status to sulfonamides; Z83.3 Family history of diabetes mellitus; Z82.49 Family history of ischemic heart disease and other diseases of the circulatory system; Z82.3 Family history of stroke; Z72.89 Other problems related to lifestyle; T14.90XS Injury, unspecified, sequela; Z79.01 Long term (current) use of anticoagulants; Z87.442 Personal history of urinary calculi
CPT/HCPCS: 36415; 80048; 84520; 85014; 85018; 85025; 85049; 85610; 88305; 88311; A9270-GY; C1776; J0330; J0690; J1100; J1170; J1650; J2250; J2704; J3010